=== PATIENT | male | born 1965 | race Caucasian/White ===

== ENCOUNTER 2022-08-15 01:51 | Emergency (ER) | payer BC ==
[~2022-08-15] VITALS: Ht 172.7 cm; Wt 113.4 kg
--- NOTE | 2022-08-15 02:14 | NUR ---
Dr. Durant in room examing patient.
[2022-08-15 02:36] LABS: HEMATOCRIT 39.4 % (36.7-47.1); MEAN CORPUSCULAR HEMOGLOBIN 30.4 uug (23.8-33.4); MEAN CORPUSCULAR VOLUME 88.1 fL (73.0-96.2); PLATELET COUNT (AUTO) 304 K/uL (152-348)
[2022-08-15 02:45] LABS: CREATININE 3.8 mg/dL (0.6-1.3); POTASSIUM 3.4 mmol/L (3.5-5.1)
[2022-08-15] MEDS ORDERED: IV NS 1000 ML 1,000 ML IV ONE ×3 (03:00→05:00)
[2022-08-15] MEDS ORDERED: POTASSIUM BICARBONATE/CIT AC 25 MEQ TABLET.EFF PO ONE (03:00)
[2022-08-15] MEDS ORDERED: POTASSIUM BICARBONATE/CIT AC 25 MEQ TABLET.EFF ONE (03:10)
[2022-08-15 05:01] LABS: *BILIRUBIN,URIN NEGATIVE (NEGATIVE); *BLOOD, URINE NEGATIVE (NEGATIVE); *CLARITY,URINE CLEAR (CLEAR); *COLOR,URINE YELLOW (YELLOW); *KETONES,URINE NEGATIVE (NEGATIVE); *UROBILINOGEN,URINE 0.2 E.U./dl (NORMAL); LEUKOCYTE ESTERASE ,URINE NEGATIVE (NEGATIVE); NITRITE, URINE NEGATIVE (NEGATIVE); PH,URINE 5.5 (5.0-8.0); UGLUCOSE NEGATIVE (NEGATIVE)
[2022-08-15 05:06] LABS: POTASSIUM 3.8 mmol/L (3.5-5.1)
--- NOTE | 2022-08-15 05:48 | NUR ---
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
[2022-08-15 06:02] VITALS: BP 99/66
== END 2022-08-15 06:10 | disposition home or self-care (01) ==
LOC: ER 01:59
DX: I95.9 Hypotension, unspecified (principal); F17.210 Nicotine dependence, cigarettes, uncomplicated; Z90.49 Acquired absence of other specified parts of digestive tract
CPT/HCPCS: 99284; 96360; 96361; 80048 ×2; 81003; 83735; 85025; 36415; 93005; 82533; 82088; J7040 ×2; A4663